=== PATIENT | male | born 1990 | race Caucasian/White ===

== ENCOUNTER 2021-02-02 11:59 | Outpatient (CLI) | payer OTHER, SELFPAY ==
[2021-02-02 13:58] LABS: Liquefaction Semen Complete in 30 min. (<30 minutes); Semen Color Opaque (Grey-opaque); Semen Immotility 20 %; Semen Morphology Result to Follow; Semen Non-Progressive Motility 10 %; Semen Progressive Motility 70 % (>32); Semen Total Motility 80 (>40% (PM+NP)); Semen Viscosity Increased (Not Increa.); Sperm Count 92.9 Mil/mL (60-150 million/mL); pH Semen 8.5 (7.2-8.0)
[2021-02-13 14:27] LABS: Fructose, Semen 131 mg/dL (150-600)
== END 2021-02-02 12:00 | disposition home or self-care (01) ==
LOC: CHSLAB 12:03
PROVIDERS: PCP Family Medicine; Visit Provider Nurse Practitioner
DX: N46.9 Male infertility, unspecified (principal)
CPT/HCPCS: 82757; 88160; 89320